=== PATIENT | male | born 1985 | race Caucasian/White ===

== ENCOUNTER 2017-09-26 12:02 | Emergency (ER) | payer OTHER ==
[2017-09-26 12:08] VITALS: BP 133/79
--- NOTE | 2017-09-26 12:34 | ED Physician Documentation ---
PD HPI MALE - Stated complaint Stated Complaint: MALE - Chief complaint Chief Complaint: General - History obtained from History obtained from: Patient - History of Present Illness Timing - onset: How many days ago (2) Timing - duration: Days Timing - details: Gradual onset, Still present Associated symptoms: No: Dysuria, Urinary frequency, Discharge, Genital sore / lesion (no sores per se, but today noted the base/side of his penis to have some local swelling. Not tender. No discharge nor soreness at meatus. He has had tenderness/pain at pubis area for 2 days. No noted injury.), Testiclar pain PD HPI MALE CONTRIB FACTORS: Sexually active. No: Exposed to STD Similar symptoms before: Has not had sx before Recently seen: Not recently seen Review of Systems Constitutional: denies: Fever, Chills Throat: denies: Sore throat GI: denies: Abdominal Pain, Nausea, Vomiting, Diarrhea : denies: Dysuria, Frequency, Discharge, Testicular pain Skin: denies: Abrasion (s), Laceration (s) PD PAST MEDICAL HISTORY - Past Medical History Past Medical History: No - Past Surgical History Past Surgical History: No - Present Medications Home Medications: Ambulatory Orders Medication Instructions Recorded Confirmed Doxycycline Monohydrate 100 mg PO BID #14 tablet 09/26/17 - Allergies Allergies/Adverse Reactions: Allergies Allergy/AdvReac Type Severity Reaction Status Date / Time No Known Drug Allergies Allergy Verified 09/26/17 12:07 - Social History Does the pt smoke?: No Smoking Status: Never smoker Does the pt drink ETOH?: Yes Does the pt have substance abuse?: No - POLST Patient has POLST: No PD ED PE NORMAL - Vitals Vital signs reviewed: Yes - General General: Alert and oriented X 3, No acute distress, Well developed/nourished - Abdomen Abdomen: Normal bowel sounds, Soft, Non tender, Non distended - Male Male : Other (there is some tenderness and small lump in pubis area above base of penis. No skin sores nor rash. The penis has some mild edema left proximal side without redness nor warmth. The glans and meatus appear normal. No hernias felt on exam. Testicles and scrotum are not tender, no swelling, and testicles have normal lie. ) - Rectal Rectal: Deferred - Back Back: No CVA TTP - Derm Derm: Normal color, Warm and dry, No rash Results - Vitals Vitals: Vital Signs - 24 hr 09/26/17 12:05 Temperature 36.2 C L Heart Rate 99 Respiratory 16 Rate Blood Pressure 133/79 H O2 Saturation 100 Oxygen O2 Source Room air - Labs Labs: Laboratory Tests 09/26/17 12:38 Urine Color YELLOW Urine Clarity CLEAR Urine pH 7.5 Ur Specific [place] 1.015 Urine Protein NEGATIVE Urine Glucose (UA) NEGATIVE Urine Ketones NEGATIVE Urine Occult Blood NEGATIVE Urine Nitrite NEGATIVE Urine Bilirubin NEGATIVE Urine Urobilinogen 0.2 (NORMAL) Ur Leukocyte Esterase NEGATIVE Ur Microscopic Review NOT INDICATED Urine Culture Comments NOT INDICATED - Rads (name of study) pelvic US Radiology: Prelim report reviewed (adenopathy at area of tenderness. No abscess/ mass. ) PD MEDICAL DECISION MAKING - ED course Complexity details: reviewed results (just lymph nodes in area of tenderness), re-evaluated patient (U/S showing just lymph nodes in the area. But they are tender so presume reacting to local process. UA is good. No external inection. Denies dysuria. Consider prostate as local infection possiblity. Will treat as adenitis. The penile shaft swelling looks like vascular congestion/edema and not an infection. ), considered differential, d/w patient Departure - Departure Disposition: 01 Home, Self Care Clinical Impression: Adenitis, acute Condition: Stable Record reviewed to determine appropriate education?: Yes Instructions: ED Cervical Adenitis Abx Tx Follow-Up: [facility] [Provider Group] Prescriptions: Doxycycline Monohydrate 100 mg PO BID #14 tablet Comments: Your urine test appears normal. The ultrasound showed lymph nodes in the area that is tender. Tender lymph nodes usually suggest some underlying infection nearby. This could be a skin process. In that area I would consider a mild prostate infection as a possibility 2. I would treat with some antibiotics presumptively for a week and see if everything is improved. The swelling on the penile shaft looks to be just some impairment of return flow likely related to the swollen lymph nodes near the base. It does not look like infected itself. Tylenol or ibuprofen if needed for pains. Recheck if not improved over the next several days. Discharge Date/Time: 09/26/17 15:52
[2017-09-26 12:54] LABS: BILIRUBIN,URINE NEGATIVE (NEGATIVE); CLARITY,URINE CLEAR (CLEAR); GLUCOSE, URINE (UA) NEGATIVE (NEGATIVE); KETONES,URINE (UA) NEGATIVE (NEGATIVE); LEUKOCYTE ESTERASE, URINE NEGATIVE (NEGATIVE); NITRITE,URINE NEGATIVE (NEGATIVE); OCCULT BLOOD,URINE NEGATIVE (NEGATIVE); PH,URINE 7.5 PH (5.0-7.5); PROTEIN,URINE NEGATIVE (NEGATIVE); UROBILINOGEN,URINE 0.2 (NORMAL) E.U./dL (NORMAL)
--- NOTE | 2017-09-26 15:21 | Ultrasound Preliminary Report ---
Exam: US PELVIC LIMITED OR F/U IMPRESSION: No sonographic abnormality detected underlying the area of concern. [facility] SITE ID: [id number]
--- NOTE | 2017-09-26 15:21 | Ultrasound Report ---
EXAM: PELVIS ULTRASOUND, LIMITED EXAM DATE: 09/26/2017 03:07 PM. CLINICAL HISTORY: Pubic area swelling and tenderness. COMPARISON: None. TECHNIQUE: Real-time scanning was performed with static images obtained. FINDINGS: Targeted evaluation of the area of clinical concern reveals underlying normal-sized lymph n odes with normal fatty jennifer. No mass or focal fluid collection. IMPRESSION: No sonographic abnormality detected underlying the area of concern. [facility] Referring Provider Line: [phone] SITE ID: [id number]
== END 2017-09-26 15:52 | disposition home or self-care (01) ==
LOC: ED 12:02
DX: L04.8 Acute lymphadenitis of other sites (principal); R22.9 Localized swelling, mass and lump, unspecified
CPT/HCPCS: 76857; 81001; 81003; 87086; 99283

== ENCOUNTER 2017-10-21 22:42 | Emergency (ER) | payer OTHER ==
--- NOTE | 2017-10-21 23:22 | ED Physician Documentation ---
PD HPI SKIN - Stated complaint Stated Complaint: TAILBONE INJURY - Chief complaint Chief Complaint: Wound - History obtained from History obtained from: Patient - History of Present Illness Timing - onset: Today Timing - details: Gradual onset, Still present Location: Other (gluteal region) Quality / character: Painful Similar symptoms before: Work up / diagnostics, Treatment Recently seen: Not recently seen - Additional information Additional information: patient is a 31 year old male with a history of pionidal cysts/infections who is presenting to the emergency department for discharge from that same region. Patient states that he noticed a small amount of discharge yesterday and today it progressed to be even more. Patient has had to have a drain placed in the past. Review of Systems Ten Systems: 10 systems reviewed and negative Constitutional: denies: Fever, Chills Skin: reports: Rash, Lesions PD PAST MEDICAL HISTORY - Past Medical History Past Medical History: Yes - Past Surgical History Past Surgical History: No - Present Medications Home Medications: Ambulatory Orders Medication Instructions Recorded Confirmed Clindamycin HCl [Clindamycin 300MG 300 mg PO Q6HR #28 capsule 10/21/17 CAP] - Allergies Allergies/Adverse Reactions: Allergies Allergy/AdvReac Type Severity Reaction Status Date / Time No Known Drug Allergies Allergy Verified 10/21/17 22:50 - Social History Does the pt smoke?: No Smoking Status: Never smoker Does the pt drink ETOH?: No Does the pt have substance abuse?: No - Immunizations Immunizations are current?: Yes - POLST Patient has POLST: No PD ED PE NORMAL - Vitals Vital signs reviewed: Yes - General General: Alert and oriented X 3 - HEENT HEENT: Atraumatic - Neck Neck: Supple, no meningeal sign - Cardiac Cardiac: RRR - Respiratory Respiratory: No respiratory distress - Abdomen Abdomen: Soft, Non distended - Neuro Neuro: Alert and oriented X 3 Eye Opening: Spontaneous PD ED PE EXPANDED - Derm Derm: Abscess (abscess draining from previous drainage site) Results - Vitals Vitals: Vital Signs - 24 hr 10/21/17 10/21/17 22:45 23:57 Temperature 36.6 C 36.9 C Heart Rate 61 76 Respiratory 16 16 Rate Blood Pressure 128/71 118/96 H O2 Saturation 98 99 Oxygen O2 Source Room air PD MEDICAL DECISION MAKING - ED course Complexity details: reviewed old records, reviewed results, re-evaluated patient , considered differential, d/w patient ED course: Patient was seen and examined at bedside. patient's wound was already open so it was just irrigated. patient was started on clindamycin for MRSA risk. patient required no further work up at this time and was stable for discharge with outpatient follow up. Departure - Departure Disposition: 01 Home, Self Care Clinical Impression: Abscess Condition: Good Instructions: ED Abscess IandD Follow-Up: primary,care provider [Other] - Tomorrow Prescriptions: Clindamycin HCl [Clindamycin 300MG CAP] 300 mg PO Q6HR #28 capsule Comments: Your symptoms today are being caused by an infection. due to the fact that it is already open and draining it should expedite healing. You are being started on antibiotics with mrsa coverage. You should take the medication with yogurt or probiotics to help reduce the gi side effects. You can take motrin or tylenol as needed for pain and percocet for breakthrough pain. You should follow up with your doctor for re-evaluation. Discharge Date/Time: 10/21/17 23:57
[2017-10-21] MEDS ORDERED: CLINDAMYCIN 150 MG CAPSULE PO STA (23:32)
[2017-10-21] MEDS ORDERED: oxyCODONE/ACET 5/325 Prepack 4 PO STA (23:32)
[2017-10-21 23:58] VITALS: BP 118/96
== END 2017-10-21 23:57 | disposition home or self-care (01) ==
LOC: ED 22:42
DX: L02.31 Cutaneous abscess of buttock (principal)
CPT/HCPCS: 99283; A9270